=== PATIENT | male | born 1980 | race Caucasian/White ===

== ENCOUNTER → 2019-02-06 | Day surgery (SDC) | payer OTHER ==
[~2019-02-06] MED LIST: LIDOCAINE 2% PF 5 ML VIAL. ONE; PROPOFOL 20 ML IV ONE
[2019-02-06 13:44] VITALS: BP 119/84
--- NOTE | 2019-02-10 18:06 | PATHOLOGY ---
[facility] Accession Number: [id number] . 01 Material submitted: . esophagus - DISTAL ESOPHAGUS BIOPSY. Modifiers: distal . 01 Clinical history: . Pre-OP DX: Heartburn, epigastric pain Post-OP DX: Ulcer . 02 Diagnosis: Esophageal biopsies, distal esophagus: - Segments of hyperplastic squamous esophageal mucosa showing focal acute inflammation, consistent with reflux esophagitis. (JPM:sari; 02/10/2019) QMS/02/10/2019 . 02 Comment: Sections of the distal esophageal biopsy reveal segments of tangentially oriented hyperplastic squamous esophageal mucosa showing focal acute inflammation. There are a few scattered intraepithelial eosinophils. The findings are consistent with reflux esophagitis. There is no evidence of Douglas's change, dysplasia, or malignancy. (JPM:sari; 02/10/2019) . 02 Electronically signed: . Dominik Gutierrez MD, Pathologist NPI- [id number] . 01 Gross description: . Received in formalin labeled "Ioner, Neal, distal esophagus BX," are 3 segments of paez soft tissue measuring 1.3 x 0.9 x 0.3 cm in aggregate dimensions and ranging from 0.5 to 0.7 cm in maximum dimension. The specimen is submitted entirely in cassette A1. (TSD; 02/07/2019) TOB/TOB . 02 Pathologist provided ICD-10: K21.0 . 02 CPT . 075594 Specimen Comment: A courtesy copy of this report has been sent to Specimen Comment: [phone], . Specimen Comment: Report sent to / DR NG Performed at: [address], [place], [place] [id number] MD Daniele Gilman MD Phone: [phone] Performed at: [address] [id number] MD Dominik Gutierrez MD Phone: [phone]
== END ==
LOC: SURG 12:22
PROVIDERS: ATTEND Internal Medicine Gastroenterology
DX: K29.50 Unspecified chronic gastritis without bleeding (principal); K21.0 Gastro-esophageal reflux disease with esophagitis; F41.9 Anxiety disorder, unspecified; K21.9 Gastro-esophageal reflux disease without esophagitis; F15.90 Other stimulant use, unspecified, uncomplicated
CPT/HCPCS: 43239; 88305; J2001; J2704